=== PATIENT | male | born 1990 | race Caucasian/White ===

== ENCOUNTER 2020-11-04 15:16 | Emergency (ER) | payer SELFPAY ==
[~2020-11-04] VITALS: Ht 200.7 cm; Wt 99.8 kg
[2020-11-04 15:18] VITALS: BP 125/88
[2020-11-04 15:58] LABS: Urine Bacteria NONE SEEN /hpf (None Seen); Urine Blood Negative /uL (Negative); Urine Specific Gravity 1.022 (1.001-1.035); Urine WBC 237 /hpf (0 - 3)
== END 2020-11-04 19:52 | disposition left against medical advice (07) ==
LOC: ER 15:16
DX: R36.9 Urethral discharge, unspecified (principal); Z53.21 Procedure and treatment not carried out due to patient leaving prior to being seen by health care provider
CPT/HCPCS: 81001